=== PATIENT | male | born 1955 | race Caucasian/White ===

== ENCOUNTER → 2018-03-25 14:27 | Outpatient (CLI) | payer MEDICARE ==
[2018-03-25 20:03] LABS: APPEARANCE CLEAR (CLEAR); BILIRUBIN NEGATIVE (NEGATIVE); COLOR YELLOW (YELLOW); GLUCOSE 1000 mg/dL (NEGATIVE); KETONE NEGATIVE (NEGATIVE); NITRITE NEGATIVE (NEGATIVE); PROTEIN TRACE mg/dL (NEGATIVE); SPECIFIC GRAVITY 1.015 (1.005-1.020); UROBILINOGEN NORMAL (NORMAL)
== END | disposition home or self-care (01) ==
LOC: D.LABREF 14:27
PROVIDERS: Family Medicine
DX: E11.9 Type 2 diabetes mellitus without complications (principal); R35.0 Frequency of micturition; R32 Unspecified urinary incontinence

== ENCOUNTER 2021-01-05 12:35 | Observation (INO) | payer MEDICARE, MEDICAID ==
[~2021-01-05] VITALS: Ht 172.7 cm; Wt 136.4 kg
[2021-01-05 13:11] LABS: CALC OSMOLALITY 284 mosm/kg (275-300); CALCIUM 9.6 mg/dL (8.5-10.1); CARBON DIOXIDE 24.2 mmol/L (21.0-32.0); CHLORIDE - SERUM 99 mmol/L (98-107); CREATININE - SERUM 2.7 mg/dL (0.6-1.3); GLUCOSE 210 mg/dL (74-106); POTASSIUM - SERUM 4.1 mmol/L (3.5-5.1); SODIUM 132 mmol/L (136-145); UREA NITROGEN 53 mg/dL (7-18); eGFR NON AFRICAN AMERICAN 25 mL/min (90-120)
[2021-01-05 13:30] LABS: BASOPHILS 0.3 % (0-2); EOSINOPHILS 3.5 % (0-7); HEMATOCRIT 44.8 % (42.0-54.0); HEMOGLOBIN 14.5 g/dL (13.5-17.5); IMMATURE GRANULOCYTES 0.2 % (0-5); LYMPHOCYTE ABS# 2.17 10x3/uL (1.32-3.57); LYMPHOCYTES 22.5 % (15-50); MCH 28.5 pg (26.0-34.0); MCHC 32.4 g/dL (31.0-37.0); MEAN PLATELET VOLUME 10.2 fL (7.4-10.4); MONOCYTES 8.1 % (2-11); NEUTROPHIL ABS# 6.32 10x3/uL (1.78-5.38); NEUTROPHILS 65.4 % (40-80); PLATELET COUNT 216 10x3/uL (130-400); RBC 5.09 10x6/uL (4.20-6.10); RDW 14.5 % (11.5-14.5); WBC 9.7 10x3/uL (4.8-10.8)
[2021-01-05 13:36] LABS: ALBUMIN 2.9 g/dL (3.4-5.0); ALKALINE PHOSPHATASE 77 U/L (30-120); ALT (SGPT) 34 U/L (10-68); BILIRUBIN - TOTAL 0.38 mg/dL (0.2-1.3); CKMB 2.4 U/L (0.0-3.6); CREATINE KINASE 110 UL (21-232); PRO BNP 714 pg/mL (0-125); PROTEIN - SERUM 8.2 g/dL (6.4-8.2); TROPONIN-I < 0.017 ng/mL (0.000-0.060)
[2021-01-05 13:43] LABS: INR 1.16 (0.85-1.17); PROTIME 13.7 SECONDS (11.6-15.0)
[2021-01-05] MEDS ORDERED: PLAVIX75 MG PO (13:51)
[2021-01-05] MEDS ORDERED: NEURONTIN600 MG PO (13:52)
[2021-01-05] MEDS ORDERED: LOPRESSOR25 MG PO ×2 (13:53→13:54)
[2021-01-05] MEDS ORDERED: FENOFIBRATE160 MG PO (13:54)
[2021-01-05] MEDS ORDERED: LEVEMIR IN100 UNITS/ SC (13:55)
[2021-01-05] MEDS ORDERED: HUMULIN R100 UNIT/1 SC (13:56)
[2021-01-05 13:59] LABS: APTT 31.4 SECONDS (22.8-39.4)
--- NOTE | 2021-01-05 16:02 | NUR ---
URINE COLLECTED AND SENT TO LAB
[2021-01-05 16:21] LABS: BILIRUBIN NEGATIVE (NEGATIVE); KETONE NEGATIVE (NEGATIVE); NITRITE NEGATIVE (NEGATIVE); UROBILINOGEN NORMAL mg/dL (< 2)
[2021-01-05 16:25] LABS: BACTERIA FEW HPF (NONE SEEN); SQUAMOUS EPITHELIAL 0-5 HPF (0-4); WHITE CELLS - URINE 0-5 HPF (0-1)
[2021-01-05 18:22] VITALS: BP 159/82; BMI 45.7
--- NOTE | 2021-01-05 18:37 | NUR ---
ASSESSMENT PER FLOW SHEET. PATIENT IS WITHOUT DISTRESS.DECLINES SCD'S,EDUCATION PROVIDED.IS AT BEDSIDE AND INSTRUCTED. PATIENT WILL NOT ANSWER QUESTIONS RE.. MEDICATIONS,LAST DOSE AND TIME. UNLABELED BOTTLE WITH 8 PILLS REMOVED FROM ARM OF CHAIR. PATIENT STATES THEY ARE HIS MEDS FOR DAY. I EXPLAINED TO PATIENT WE CANNOT HAVE MEDS IN ROOM. HE GOT ANGRY AND SAID THROW THEM AWAY I DONT CARE. PATIENT ALSO STATES HE WILL DC IN AM.CALL LIGHT IN REACH
[2021-01-05 20:00] VITALS: BP 158/82
[2021-01-05 20:08] LABS: CKMB 2.4 U/L (0.0-3.6); CREATINE KINASE 115 UL (21-232)
[2021-01-05 20:10] LABS: TROPONIN-I < 0.017 ng/mL (0.000-0.060)
--- NOTE | 2021-01-06 01:31 | NUR ---
PT TRIAL JUDGE LIGHT AFTER MED FOR CONSTIPATION GIVEN PT HAD LARGE BM AND WANTED FOR NURSE TO LOOK AT IT TO LET THE MD KNOW ABOUT THE LARGE AMOUNT. PT WILL CONT WITH PLAN OF CARE.
[2021-01-06 02:15] LABS: CREATINE KINASE 97 UL (21-232)
[2021-01-06 04:00] VITALS: BP 189/101
--- NOTE | 2021-01-06 07:03 | NUR ---
I have reviewed this patient and I concur with the Shift Assessment completed by the Licensed Practical Nurse today this shift.
[2021-01-06 09:26] VITALS: Ht 172.7 cm; Wt 136.4 kg
[2021-01-06] MEDS ORDERED: COZAAR100 MG PO (09:32)
[2021-01-06] MEDS ORDERED: COREG25 MG PO (09:32)
--- NOTE | 2021-01-06 09:35 | NUR ---
PATIENT TOOK IV OUT UNABLE TO ADMINISTER APRESOLINE, PATIENT STATES HE IS GOING HOME TODAY
[2021-01-06 09:41] VITALS: BP 181/116
--- NOTE | 2021-01-06 10:11 | NUR ---
PATIENT REFUSES TELEMETRY STATES HE IS GOING HOME. PATIENT DID TAKE BP MEDICATIONS WILL CONTINUE WITH PLAN OF CARE
[2021-01-06 11:30] LABS: BASOPHILS 0.2 % (0-2); EOSINOPHILS 2.9 % (0-7); HEMATOCRIT 40.4 % (42.0-54.0); HEMOGLOBIN 13.3 g/dL (13.5-17.5); IMMATURE GRANULOCYTES 0.1 % (0-5); LYMPHOCYTE ABS# 1.59 10x3/uL (1.32-3.57); LYMPHOCYTES 17.1 % (15-50); MCH 28.5 pg (26.0-34.0); MCHC 32.9 g/dL (31.0-37.0); MCV 86.5 fL (80.0-100.0); MEAN PLATELET VOLUME 9.7 fL (7.4-10.4); MONOCYTES 10.7 % (2-11); NEUTROPHIL ABS# 6.42 10x3/uL (1.78-5.38); PLATELET COUNT 200 10x3/uL (130-400); RBC 4.67 10x6/uL (4.20-6.10); RDW 14.7 % (11.5-14.5); WBC 9.3 10x3/uL (4.8-10.8)
[2021-01-06 11:55] LABS: ALBUMIN 2.5 g/dL (3.4-5.0); ALKALINE PHOSPHATASE 64 U/L (30-120); ALT (SGPT) 31 U/L (10-68); BILIRUBIN - TOTAL 0.57 mg/dL (0.2-1.3); CALCIUM 9.1 mg/dL (8.5-10.1); CHLORIDE - SERUM 101 mmol/L (98-107); CKMB 1.8 U/L (0.0-3.6); CREATINE KINASE 85 UL (21-232); CREATININE - SERUM 2.4 mg/dL (0.6-1.3); POTASSIUM - SERUM 4.2 mmol/L (3.5-5.1); SODIUM 134 mmol/L (136-145); TROPONIN-I 0.019 ng/mL (0.000-0.060); UREA NITROGEN 50 mg/dL (7-18); eGFR NON AFRICAN AMERICAN 29 mL/min (90-120)
[2021-01-06 11:57] LABS: CALC OSMOLALITY 289 mosm/kg (275-300); GLUCOSE 261 mg/dL (74-106)
--- NOTE | 2021-01-06 12:16 | NUR ---
PATIENT LEFT AMA, SIGNED PAPERS, NOTIFIED VU BELLAMY
== END 2021-01-06 12:38 | disposition left against medical advice (07) ==
LOC: D.ER 12:35 → OBSVTIME 15:05 → D.MS 15:05
PROVIDERS: Student in an Organized Health Care Education/Training Program; ADMIT Family Medicine; ATTEND Family Medicine
DX: R06.02 Shortness of breath (principal); E11.9 Type 2 diabetes mellitus without complications; I11.0 Hypertensive heart disease with heart failure; I50.9 Heart failure, unspecified; E87.1 Hypo-osmolality and hyponatremia; N17.9 Acute kidney failure, unspecified; N18.9 Chronic kidney disease, unspecified; N43.3 Hydrocele, unspecified; E11.65 Type 2 diabetes mellitus with hyperglycemia; I25.10 Atherosclerotic heart disease of native coronary artery without angina pectoris; I25.2 Old myocardial infarction; Z79.4 Long term (current) use of insulin; Z53.29 Procedure and treatment not carried out because of patient's decision for other reasons